=== PATIENT | male | born 1970 | race Caucasian/White ===

== ENCOUNTER 2020-01-01 18:55 | Emergency (ER) | payer SELFPAY ==
[2020-01-01 19:04] VITALS: BP 131/105; PULSE 114; RESP 16; TEMP 37.3; O2SAT 99
--- NOTE | 2020-01-01 19:12 | ED.GENADULT ---
HPI - General Adult General Chief complaint: Upper Respiratory Infection Stated complaint: cough and congested chest Time Seen by Provider: 01/01/20 19:12 Source: patient and RN notes reviewed Mode of arrival: ambulatory Limitations: no limitations History of Present Illness HPI narrative: 49-year-old male presents with complaints of dry cough for the past 30 days. Initially started off taking Nyquil and Dayquil intermittently with little relief. None in 2 weeks. Cristóbal says he is here to satisfy his mother's nagging him about his cough. Intermittent dry cough. Denies rhinorrhea and nasal congestion. Denies sore throat. No fevers or chills. Denies diarrhea, abdominal pain, nausea, and vomiting. Tolerating po intake well. Denies headaches, weakness, fatigue, myalgia. Denies chest pain, wheezing, or dyspnea. Exacerbation factors consists of smoke exposure. Denies recent traveling. Denies concern for COVID-19 or exposures been home since [id number] order except for essential household needs and return home. Remains active. Some parts of this dictation were generated by voice recognition software and may contain typographical and/or grammatical inaccuracies. Related Data Allergies Allergy/AdvReac Type Severity Reaction Status Date / Time No Known Allergies Allergy Verified 01/01/20 19:12 Review of Systems Review of Systems: Narrative: CONSTITUTIONAL: Denies fever, chills, sweats. EYES: Denies visual changes, redness, discharge. ENT: Denies rhinorrhea, congestion, sore throat, otalgia. CARDIOVASCULAR: Denies chest pain, palpitations, edema. RESPIRATORY: Denies dyspnea, wheezing. Complains of dry cough. GASTROINTESTINAL: Denies abdominal pain, nausea, vomiting, diarrhea. GENITOURINARY: Denies dysuria, hematuria, abnormal discharge. SKIN: Denies rash or itching. MUSCULOSKELETAL: Denies acute back pain, joint pain, or myalgia. NEUROLOGIC: Denies numbness or focal weakness. PSYCHIATRIC: Denies anxiety or depression. All systems reviewed & are unremarkable except as noted in HPI and below. [facility] Past Medical History Medical History (Updated 01/02/20 @ 00:00 by Rosibel Mares) No significant past medical history Surgical History Surgical History (Updated 01/01/20 @ 19:30 by TANIYA Guidry) History of eye surgery Right eye Family History Family History (Updated 01/01/20 @ 19:31 by TANIYA Guidry) Mother COPD (chronic obstructive pulmonary disease) Father Hypertension Diabetes mellitus Social History Social History (Updated 01/01/20 @ 19:32 by TANIYA Guidry) Smoking packs per day: 0.5 Smoking cigarettes per day: 10.0 Years smoked: 12 Smoking pack-years: 6.00 Smoking status: Current every day smoker Tobacco type: cigarettes Second hand tobacco smoke exposure: Yes Alcohol intake: current Substance use: current Substance use type: marijuana Living arrangements: with family Occupation/Education: unemployed Gender identity (if verbalized by the patient): Male Comments At time of signature, agree with nurse past medical, surgical, social, and family history. There is no relevant family history pertinent to the presenting complaint. Exam Narrative: Exam Narrative: GENERAL: This is a well-nourished, well-developed patient, in no apparent distress. Talks in full sentences and ambulates with steady gait without dyspnea. HEAD: normocephalic, atraumatic. EYES: PERRL. Sclera clear/mild erythema due to prior active he participated in before this visit. Vision is grossly intact. EARS: External ears normal, auditory canals clear and without drainage, TMs normal without perforation. Hearing grossly intact. NOSE: External nose normal with no obvious nasal discharge, nares with mild redness and enlarged turbinates. No rhinorrhea. THROAT: Mucous membranes moist, posterior pharynx clear. PND, no erythema, tonsils normal. NECK: Neck supple, non-tender
[2020-01-01 19:51] VITALS: BP 128/86
== END 2020-01-01 19:51 | disposition home or self-care (01) ==
PROVIDERS: Emergency Provider Nurse Practitioner Family
DX: J06.9 Acute upper respiratory infection, unspecified (principal); F17.210 Nicotine dependence, cigarettes, uncomplicated
CPT/HCPCS: 99213; G0463

== ENCOUNTER 2021-01-19 10:54 | Emergency (ER) | payer SELFPAY ==
--- NOTE | 2021-01-19 11:01 | ED.URI ---
HPI - URI/Sore Throat General Stated Complaint: trouble breathing Time Seen by Provider: 01/19/21 11:02 Source: patient and family History of Present Illness HPI Narrative: Patient is a 50-year-old male who came into the facility with his girlfriend who suggested to the registrar I want you to call an ambulance . Patient was met in the lobby by the provider and was visibly having trouble breathing. The girlfriend was very apprehensive to have the patient check in. Patient initially did not give his name or any information until it was necessary for the ambulance call. Patient was then refusing to be seen at our facility. Attempted to get vitals on the patient who then refused. Patient sat at the registrar desk until EMS arrived. Patient left out the front door in a provided wheelchair, with his girlfriend, for EMS arrival. Patient was requesting a care at [facility]. Provider briefly assessed the patient, listened to the patient's lungs which were very coarse, inspiratory and expiratory wheezes, and tight. Patient refused any further assessment. Some parts of this dictation were generated by voice recognition software and may contain typographical and/or grammatical inaccuracies. Related Data Allergies Allergy/AdvReac Type Severity Reaction Status Date / Time No Known Allergies Allergy Verified 01/01/20 19:12 [facility] Past Medical History Medical History (Updated 01/19/21 @ 12:51 by TANIYA Lynch) No significant past medical history Surgical History Surgical History (Updated 01/01/20 @ 19:30 by TANIYA Guidry) History of eye surgery Right eye Family History Family History (Updated 01/01/20 @ 19:31 by TANIYA Guidry) Mother COPD (chronic obstructive pulmonary disease) Father Hypertension Diabetes mellitus Social History Social History (Updated 01/01/20 @ 19:32 by TANIYA Guidry) Smoking packs per day: 0.5 Smoking cigarettes per day: 10.0 Years smoked: 12 Smoking pack-years: 6.00 Smoking status: Current every day smoker Tobacco type: cigarettes Second hand tobacco smoke exposure: Yes Alcohol intake: current Substance use: current Substance use type: marijuana Gender identity (if verbalized by the patient): Male Discharge Plan Discharge Clinical Impression: SOB (shortness of breath) Patient Disposition: Other Condition: Stable Instructions: Antibiotic Form Prescriptions: No Action benzonatate 100 mg capsule 100 mg PO BID Qty: 30 RF: 0 fluticasone propionate [Allergy Relief (fluticasone)] 50 mcg/actuation spray,suspension 1 spray NASAL BID Qty: 16 RF: 0 loratadine [Claritin] 10 mg tablet 10 mg PO DAILY 30 Days Qty: 30 RF: 0 Follow-up/Referrals: UNKNOWN,DOCTOR [Primary Care Provider] - Time of Disposition: 11:06
--- NOTE | 2021-01-19 14:30 | PC.NURSE ---
1105 upon arrival pt/company requested ambulance called, stating he did not want to be seen here. staff stayed with pt until ambulance arrived.
== END 2021-01-19 11:05 | disposition left against medical advice (07) ==
PROVIDERS: Emergency Provider Nurse Practitioner Family
DX: R06.02 Shortness of breath (principal); F17.210 Nicotine dependence, cigarettes, uncomplicated
CPT/HCPCS: 99199

== ENCOUNTER 2024-06-14 08:25 | Emergency (ER) | payer MEDICAID, SELFPAY ==
[2024-06-14 08:34] VITALS: BP 134/80; PULSE 76; RESP 20; TEMP 36.8; O2SAT 98
--- NOTE | 2024-06-14 08:43 | ED.SKABFB ---
HPI - Skin/Abscess/Foreign Bdy General Chief complaint: Skin/Abscess/Foreign Body Stated complaint: Rash History of Present Illness HPI narrative: patient is a 53-year-old male, without significant past medical history, presents to [facility] with a pruritic rash of his upper extremities, torso and face, onset of symptoms approximately 3-4 days ago after being exposed to poison jagdish. He denies throat tongue or lip swelling. He has not attempted any modifying factors. He reports that his eyelids are very itchy and this has prompted this visit. Related Data Allergies Allergy/AdvReac Type Severity Reaction Status Date / Time No Known Allergies Allergy Verified 01/01/20 19:12 Review of Systems Eyes: Comments: For HPI Integumentary/Breasts: Comments: refer HPI [facility] Past Medical History Medical History No significant past medical history Surgical History Surgical History (Updated 01/01/20 @ 19:30 by TANIYA Guidry) History of eye surgery Right eye Family History Family History (Updated 01/01/20 @ 19:31 by TANIYA Guidry) Mother COPD (chronic obstructive pulmonary disease) Father Hypertension Diabetes mellitus Social History Social History (Updated 01/01/20 @ 19:32 by TANIYA Guidry) Smoking packs per day: 0.5 Smoking cigarettes per day: 10.0 Years smoked: 12 Smoking pack-years: 6.00 Smoking status: Current every day smoker Tobacco type: cigarettes Second hand tobacco smoke exposure: Yes Alcohol intake: current Substance use: current Substance use type: marijuana Living arrangements: with family Occupation/Education: unemployed Gender identity (if verbalized by the patient): Male Exam Const: General: cooperative, healthy appearing, comfortable, no acute distress and well developed Nutritional Appearance: average body habitus Orientation/consciousness: oriented to person Limitations: no limitations HENMT: Head: normal to inspection, No palpable skull fracture present and normocephalic Ears: hearing grossly normal bilaterally, external ears normal and TM's normal bilaterally Face/Nose/Sinus: Normal external nose present, Normal nares present and No nasal polyps present Mouth: Yes Normal oral and palatal mucosa present, Yes lip normal and Yes tongue normal Teeth and gingiva: dentition normal and gingiva normal Throat: posterior oropharynx normal, tonsils normal and uvula midline Eyes: General: appearance normal, both eyes and all related structures Visual Zamora: normal visual zamora by confrontation Alignment and Position: alignment normal and position normal Eyelids: eyelid abnormality and other ( patient has a dry eczematous appearance of his eyelids bilaterally) Conjunctivae: conjunctivae normal Sclera: sclerae normal Cornea: corneas normal Pupils: Equal, round and reactive pupils present EOM: EOMs intact bilaterally Other: no tenderness to palpation over the eyelids, skin surface appears consistent with contact dermatitis as they appear eczematous, there is no lymphangitis Neck: Neck: normal visual inspection Thyroid: thyroid normal Chest: Chest palpation & inspection: normal inspection of the chest Resp: Effort & Inspection: normal respiratory effort Auscultation: clear to auscultation bilaterally Cardio: Palpation: normal PMI Rate: regular rate Heart sounds: S1 normal heart sound present and S2 normal heart sound present Skin: Rashes: rashes noted Other: patient has linear options of papular rash to the forearms bilaterally, volar and dorsal aspects, there is no honey crusting or vesicles present. No tenderness to palpation or evidence of cellulitis, there are similar rash eruption over the anterior torso upper chest. Consistent with contact allergy such as poison jagdish or poison oak Course Course Emergency Course: patient's exam is cons
== END 2024-06-14 08:57 | disposition home or self-care (01) ==
PROVIDERS: Emergency Provider Nurse Practitioner Family
DX: L23.7 Allergic contact dermatitis due to plants, except food (principal); F17.210 Nicotine dependence, cigarettes, uncomplicated
CPT/HCPCS: 99213; G0463

== ENCOUNTER 2024-06-28 10:04 | Emergency (ER) | payer OTHER, SELFPAY ==
[2024-06-28 10:14] VITALS: BP 133/96; PULSE 81; RESP 20; TEMP 36.7; O2SAT 96
--- NOTE | 2024-06-28 10:54 | ED.SKABFB ---
HPI - Skin/Abscess/Foreign Bdy General Chief complaint: Skin/Abscess/Foreign Body Stated complaint: poison jagdish Time Seen by Provider: 06/28/24 10:40 Source: patient, RN notes reviewed and old records reviewed Mode of arrival: ambulatory Limitations: no limitations History of Present Illness HPI narrative: 53 year old male who presents to [facility] care with complaints of continued poison jagdish rash to his arms, left hand, legs and private area that is itchy. Patient was her 2 weeks ago and received steroids and reports he completed as order which helped resolve rash on his face and took swelling away from his eyes but not resolved rash othrwise. Patint reports that he has been using calamine lotion and spray to rash areas but continues to be itchy, states he wants a shot. MD complaint: rash Onset (ago): week(s) (2.5) Location: LUE, RUE, L hand, genitals, LLE and RLE Severity: moderate Quality: pruritic Treatments prior to arrival: other (took steroids and using calamine ) Related Data Allergies Allergy/AdvReac Type Severity Reaction Status Date / Time No Known Allergies Allergy Verified 01/01/20 19:12 Review of Systems Review of Systems: CONSTITUTIONAL: Denies fever, chills, or sweats. CARDIOVASCULAR: Denies chest pain, palpitations, or edema. RESPIRATORY: Denies cough or dyspnea. SKIN: Reports continued rash to bilateral forearms, legs and groin which is itchy no vesicles or drainage noted MUSCULOSKELETAL: Denies joint pain or myalgia. NEUROLOGIC: Denies headache, numbness, or weakness. All systems reviewed & are unremarkable except as noted in HPI and below [facility] Past Medical History Medical History No significant past medical history Surgical History Surgical History History of eye surgery Right eye Family History Family History Mother COPD (chronic obstructive pulmonary disease) Father Hypertension Diabetes mellitus Social History Social History Smoking packs per day: 0.5 Smoking cigarettes per day: 10.0 Years smoked: 12 Smoking pack-years: 6.00 Smoking status: Current every day smoker Tobacco type: cigarettes Second hand tobacco smoke exposure: Yes Alcohol intake: current Substance use: current Substance use type: marijuana Living arrangements: with family Occupation/Education: unemployed Gender identity (if verbalized by the patient): Male Comments At time of signature, agree with nursing past medical, surgical, social and family history. There is no relevant family history pertinent to the presenting complaint Exam Narrative: GENERAL: Well-appearing, well-nourished, and in no acute distress. HEAD: Normocephalic, atraumatic. EYES: PERRLA, conjunctivae clear, and EOMI. ENT: Mucous membranes moist. Oropharynx without edema, erythema or lesions. NECK: Supple. No lymphadenopathy CHEST: Clear to auscultation. No respiratory distress SAO2 96% on room air HEART: Regular rate and rhythm. SKIN: Warm, dry.? Patches of erythema and edema with no drainage or vesicles noted, itchy, areas note to bilateral arms legs and left hand and also reported to genital area. NEURO:? Alert and oriented x3. PSYCH: Normal mood and affect Course Course Emergency Course: Patient is aware of diagnosis, understands and agrees to treatment plan.? Anticipatory guidance given.? Patient agrees to follow-up as directed and is aware of reasons to seek care at the emergency department. Portions of this record may have been created with voice recognition software Level of Care: Express Care Visit Vital Signs Vital signs: Vital Signs Temperature 36.7 C 06/28/24 10:14 Pulse Rate 81 06/28/24 10:14 Respiratory Rate 20 06/28/24 10:14 Blood Pressure
[2024-06-28] MEDS: methylPREDNISolone ACETATE 80 MG/ML VIAL IM (11:01)
== END 2024-06-28 11:20 | disposition home or self-care (01) ==
PROVIDERS: Emergency Provider Registered Nurse
DX: L25.9 Unspecified contact dermatitis, unspecified cause (principal); F17.210 Nicotine dependence, cigarettes, uncomplicated; F12.90 Cannabis use, unspecified, uncomplicated
CPT/HCPCS: 96372; 99213; G0463; J1010